=== PATIENT | male | born 1955 | race Caucasian/White ===

== ENCOUNTER 2017-09-16 01:28 | Emergency (ER) | payer OTHER ==
[~2017-09-16] VITALS: Ht 180.3 cm; Wt 93.0 kg
--- NOTE | 2017-09-16 01:43 | NUR ---
PT PRESENTED TO THE ER WITH A C/O LLE PAIN AND REDNESS. PT AMBULATED TO BED #12 WITH A SLOW STEADY GAIT.
[2017-09-16] MEDS ORDERED: TDAP [DIPH/PERTUSSIS/TET] 0.5 ML VIAL IM ONE ×2 (02:00→02:02)
[2017-09-16] MEDS ORDERED: SULFAMETH/TRIMETH 800/160 MG 1 UDTAB TABLET PO ONE ×2 (02:00→02:01)
[2017-09-16] MEDS ORDERED: IBUPROFEN 600 MG TABLET PO ONE ×2 (02:00→02:01)
[2017-09-16] MEDS ORDERED: CEPHALEXIN MONOHYDRATE 500 MG CAPSULE PO ONE ×2 (02:00→02:01)
--- NOTE | 2017-09-16 03:28 | NUR ---
Patient discharged to home in stable condition. Written and verbal after care instructions given. Patient verbalizes understanding of instruction AND RX. PT AMBULATED OUT WITH A STEADY GAIT. VSS. NAD NOTED.
[2017-09-16 03:38] VITALS: BP 140/72
== END 2017-09-16 03:39 | disposition home or self-care (01) ==
LOC: ER 01:32
DX: L03.116 Cellulitis of left lower limb (principal); E78.5 Hyperlipidemia, unspecified
CPT/HCPCS: 73560; 90471; 90715; 99284; A4606; Z7610